=== PATIENT | female | born 1980 | race Caucasian/White ===

== ENCOUNTER 2025-02-22 11:58 | Inpatient (IN) | payer MEDICARE ==
[~2025-02-22] VITALS: Ht 154.9 cm; Wt 81.2 kg
[~2025-02-22 11:58] MED LIST: SULF-13 MT; VANC125C18 MT
[2025-02-22 12:07] VITALS: O2SAT 100
[2025-02-22 12:45] LABS: BASOPHILS % 0.4 % (0.0-2.0); EOSINOPHILS % 0.4 % (0.0-5.0); HEMATOCRIT. 32.8 % (36.0-48.0); HEMOGLOBIN. 10.4 g/dL (12.0-16.0); LYMPHOCYTES % 20.8 % (20.0-50.0); MEAN PLATELET VOLUME 8.0 fl (7.4-10.4); MONOCYTES % 7.8 % (2.0-8.0); NEUTROPHILS % 70.6 % (40.0-76.0); PLATELET 428 x1000/uL (130-400); RED BLOOD CELL COUNT 4.55 mill/uL (4.2-5.4); RED CELL DISTRIBUTION WIDTH 17.1 % (11.6-14.6)
[2025-02-22 12:58] LABS: CREATININE 0.8 mg/dL (0.6-1.0)
[2025-02-22 12:59] LABS: UREA NITROGEN BLOOD 7 mg/dL (9-23)
[2025-02-22 13:01] LABS: ASPARTATE AMINOTRANSFERASE 17 IU/L (<34); BILIRUBIN DIRECT < 0.1 mg/dL (<=3.0); BILIRUBIN TOTAL 0.4 mg/dL (0.1-1.0); PROTEIN TOTAL 6.6 g/dL (6.0-8.3)
[2025-02-22] MEDS ORDERED: MORPHINE SULFATE 4 MG/ML INJ (FOR IV/IM USE) IV ONE (16:30)
[2025-02-22] MEDS: ONDANSETRON HCL 4MG/2ML INJ IV ONE (17:44)
[2025-02-22] MEDS: PIPERACILLIN/TAZO 3.375G/50ML 50 ML IV NR (17:44)
[2025-02-22] MEDS: MORPHINE SULFATE 4 MG/ML INJ (FOR IV/IM USE) IV NR ×2 (17:45→22:12)
[2025-02-22] MEDS: SODIUM CHLORIDE 0.9% 1,000 ML IV ONE (17:45)
[2025-02-22] MEDS: VANCOMYCIN 1G PREMIX 200 ML IV SCH (21:20)
[2025-02-22] MEDS ORDERED: MORPHINE SULFATE 2 MG/ML INJ (NOT FOR IM USE) IV ONE (21:45)
[2025-02-22 22:36] VITALS: BP 105/65; PULSE 72; RESP 19; TEMP 36.6; O2SAT 96
[2025-02-22 23:10] VITALS: BP 105/67; PULSE 78; RESP 18; TEMP 36.696
[2025-02-23] MEDS ORDERED: NALOXONE HCL 0.4MG/ML VIAL IV PRN (00:15)
[2025-02-23] MEDS: MORPHINE SULFATE 4 MG/ML INJ (FOR IV/IM USE) IV PRN (00:20)
[2025-02-23 01:07] LABS: CLARITY URINE CLEAR (CLEAR); COLOR URINE YELLOW (YELLOW); GLUCOSE URINE NEGATIVE (NEGATIVE); KETONES URINE NEGATIVE (NEGATIVE); LEUKOCYTE ESTERASE URINE 1+ (NEGATIVE); NITRITE URINE NEGATIVE (NEGATIVE); OCCULT BLOOD URINE 1+ (NEGATIVE); PH URINE 6.0 (4.5-8.0); PROTEIN URINE TRACE (NEGATIVE); SPECIFIC GRAVITY URINE 1.016 (1.005-1.030); UROBILINOGEN URINE 0.2 E.U./dL (0.2-1.0)
[2025-02-23 01:49] LABS: SQUAMOUS EPITHELIAL CELL URINE 1+ /lpf (RARE/1+)
[2025-02-23 01:50] LABS: WBC URINE 0-2 /hpf (0-2)
[2025-02-23 01:51] LABS: BACTERIA URINE NONE SEEN
[2025-02-23] MEDS: DOXYCYCLINE 100MG/100ML 100 ML IV SCH (02:25)
[2025-02-23] MEDS: CEFTRIAXONE 1GM/50ML 50 ML IV SCH (02:25)
[2025-02-23] MEDS: HYDROCODONE/ACETAMINOPHEN 10/325MG TABLET PO PRN (02:50)
[2025-02-23] MEDS: METRONIDAZOLE 500MG TABLET PO SCH (05:43)
[2025-02-23 08:00] VITALS: BP 113/78; PULSE 69; RESP 19; TEMP 36.2; O2SAT 98
[2025-02-23 12:00] VITALS: BP 111/74; PULSE 70; RESP 19; TEMP 36.2; O2SAT 98
[2025-02-23] MEDS: OXYCODONE HCL/ACETAMINOPHEN 5/325MG TABLET PO PRN (14:56)
[2025-02-23 16:00] VITALS: BP 116/76; PULSE 72; RESP 18; TEMP 36.1; O2SAT 98
[2025-02-23 20:00] VITALS: BP 123/68; PULSE 80; RESP 18; TEMP 36.1; O2SAT 99
[2025-02-24] VITALS (7 sets, daily range): BP systolic 88–118; BP diastolic 46–72; PULSE 66–81; RESP 17–18; TEMP 36.1–37; O2SAT 97–99
[2025-02-24] MEDS: LEVOFLOXACIN 250MG TABLET PO SCH (08:41)
[2025-02-24] MEDS: DOXYCYCLINE HYCLATE 100MG CAPSULE PO SCH (09:45)
[2025-02-24] MEDS: ONDANSETRON HCL 4MG TABLET PO PRN (17:39)
[2025-02-24 17:43] LABS: BASOPHILS % 0.5 % (0.0-2.0); EOSINOPHILS % 0.7 % (0.0-5.0); HEMATOCRIT. 35.1 % (36.0-48.0); HEMOGLOBIN. 11.0 g/dL (12.0-16.0); LYMPHOCYTES % 20.1 % (20.0-50.0); MEAN PLATELET VOLUME 8.5 fl (7.4-10.4); MONOCYTES % 6.5 % (2.0-8.0); NEUTROPHILS % 72.2 % (40.0-76.0); PLATELET 401 x1000/uL (130-400); RED BLOOD CELL COUNT 4.80 mill/uL (4.2-5.4); RED CELL DISTRIBUTION WIDTH 17.0 % (11.6-14.6)
[2025-02-24 18:06] LABS: CREATININE 0.7 mg/dL (0.6-1.0); UREA NITROGEN BLOOD < 5 mg/dL (9-23)
[2025-02-25] VITALS: BP 99/56; PULSE 75; RESP 16; TEMP 36.5; O2SAT 100
[2025-02-25 04:00] VITALS: BP 93/51; PULSE 75; RESP 19; TEMP 36.9; O2SAT 96
[2025-02-25 08:20] VITALS: BP 100/65; PULSE 78; RESP 16; TEMP 36.4; O2SAT 96
[2025-02-25 12:00] VITALS: BP 119/64; PULSE 81; RESP 18; TEMP 36.7; O2SAT 99
[2025-02-25] MEDS: LEVOFLOXACIN 250MG TABLET PO SCH (12:45)
[2025-02-25] MEDS ORDERED: LEVO750T68 MT (14:28)
[2025-02-25] MEDS ORDERED: OXYC1TAB5 MT (14:31)
[2025-02-25] MEDS: POTASSIUM CHLORIDE 20MEQ TABLET SR PO NR (15:16)
[2025-02-25] MEDS: LACTULOSE 20G/30ML UDC PO NR (15:19)
[2025-02-25 16:58] VITALS: BP 119/60; PULSE 81; RESP 18; TEMP 98
== END 2025-02-25 17:14 | disposition home or self-care (01) | DRG 532 ==
LOC: ER 11:58 → ENRESERV 22:15 → 7EST 22:47
PROVIDERS: ADMIT Internal Medicine; ATTEND Internal Medicine
DX: N93.9 Abnormal uterine and vaginal bleeding, unspecified (principal); D64.9 Anemia, unspecified; E66.9 Obesity, unspecified; Z68.33 Body mass index [BMI] 33.0-33.9, adult; Z90.49 Acquired absence of other specified parts of digestive tract; Z90.710 Acquired absence of both cervix and uterus; K80.20 Calculus of gallbladder without cholecystitis without obstruction
CPT/HCPCS: 36415; 74176; 76830; 76856; 80048; 80076; 81003; 83605; 85025; 99285; A4606; J0696; J2270; J2405; J2543; J3373; J3490; J7030; Q0162